=== PATIENT | female | born 1980 | race Caucasian/White ===

== ENCOUNTER 2022-05-03 13:28 | Emergency (ER) | payer OTHER ==
[2022-05-03] MEDS ORDERED: Zofran 4 MG/2 ML VIAL IV ONE (14:20)
[2022-05-03] MEDS ORDERED: Sodium Chloride 0.9% 1000 ML 1,000 ML IV STA (14:20)
[2022-05-03] MEDS ORDERED: Zofran 4 MG/2 ML VIAL ONE (14:25)
[2022-05-03] MEDS ORDERED: MORPHINE SULFATE 4 MG INJ ONE (14:26)
[2022-05-03] MEDS ORDERED: Sodium Chloride 0.9% 1000 ML 1,000 ML ONE (14:26)
[2022-05-03] MEDS ORDERED: MORPHINE SULFATE 4 MG INJ IV ONE (14:30)
[2022-05-03 14:36] LABS: Absolute Neutrophil Ct (ANC) 3.19 x10^3/uL (1.4-6.9); Basophil (Absolute #) 0.04 x10^3/uL (0-0.4); Eosinophil % 1.1 % (0.00-5.0); Eosinophil (Absolute #) 0.06 x10^3/uL (0-0.5); Hematocrit 38.4 % (35-47); Hemoglobin 12.8 g/dL (12.0-16.0); Lymphocyte (Absolute #) 1.96 x10^3/uL (1.0-4.6); Lymphocytes % 35.1 % (24.0-44.0); Mean Cell Volume 96.5 fL (78-100); Mean Corpuscular Hemoglobin 32.2 pg (26-32); Mean Corpuscular Hgb Concent. 33.3 g/dL (32-36); Mean Platelet Volume 10.3 fL (7.5-11.0); Monocyte (Absolute #) 0.33 x10^3/uL (0.0-1.3); Monocytes % 5.9 % (0.0-12.0); Platelet Count 285 x10^3/uL (150-450); Red Blood Count 3.98 x10^6/uL (4.1-5.4); Red Cell Distribution Width 11.9 % (11.5-14.0); White Blood Count 5.6 x10^3/uL (4.0-10.5)
[2022-05-03 14:51] LABS: ALBUMIN 4.5 g/dL (3.5-5.0); ALKALINE PHOSPHATASE 67 U/L (38-126); ANION GAP 13.4 MEQ/L (5-15); BLOOD UREA NITROGEN 5 mg/dL (7-17); CHLORIDE 103 mmol/L (98-107); Calcium 9.5 mg/dL (8.4-10.2); Carbon Dioxide 29 mmol/L (22-30); Creatinine 1 0.61 mg/dL (0.52-1.04); EST GLOMERULAR FILTRATION RATE > 60.0 ML/MIN; Glucose 95 mg/dL (74-106); LIPASE 32 U/L (23-300); SGOT/AST 23 U/L (14-36); SGPT/ALT 10 U/L (0-35); SODIUM 141 mmol/L (137-145); Total Protein 7.6 g/dL (6.3-8.2)
--- NOTE | 2022-05-03 15:15 | XRAY ---
Indication: Pelvic pain. Surgical history reported for fallopian tube removal and uterine ablation. Multiple contiguous axial images obtained through the abdomen and pelvis without contrast. Comparison: None Lung bases clear. Heart not enlarged. Noncontrasted stomach and bowel loops appear nonobstructed. Appendix not visualized. Moderate diffuse scattered colonic fecal debris throughout. A few left pelvic surgical clips. No free fluid/air. Remaining liver, gallbladder, pancreas, spleen, adrenal glands, kidneys, ureters, bladder, uterus, and aorta appear unremarkable for noncontrast exam. Osseous structures intact with mild levoscoliosis centered at L3. No ventral or inguinal hernias. Impression: Moderate diffuse fecal stasis. Remaining CT abdomen/pelvis without contrast exam is negative.
--- NOTE | 2022-05-03 15:17 | ERPHSYRPT ---
- History of Present Illness Time Seen by Provider: 05/03/22 13:35 Historian: patient Exam Limitations: no limitations Patient Subjective Stated Complaint: C/O burning, throbbing left pelvic pain that has been happening constantly for the past approx 10 days. Patient has f requent pelvic pain for the past 3 years but this is a new, different pain. Triage Nursing Assessment: Patient sitting in bed with knees drawn up. She is emotional, tearful when speaking but is alert and oriented; answering questions appropriately. Left pelvic area is tender to touch. No skin alterations noted upon inspection of area. No swelling. Physician History: 41 years old female with extensive history of pelvic pain, endometriosis status post surgical adhesiolysis presented in the ER with increasing pelvic pain for the last couple of weeks which is not improving with routine pain medications. Moderate to severe sharp especially in the left lower quadrant with radiation to groin and more with palpation/movement/coughing and no significant relieving factors. Denies any urinary complaint. No vaginal bleeding or discharge. No nausea vomiting or diarrhea reported. Reports having pelvic pain multiple times in the past but this seems a little severe than usual pain. Timing/Duration: week(s) (2), intermittent, gradual onset, worse Activities at Onset: rest Quality: sharpness Abdominal Pain Onset Location: RLQ, LLQ, suprapubic Pain Radiation: no radiation Severity of Pain-Max: severe Severity of Pain-Current: severe Modifying Factors: Worsens With: movement, palpation Associated Symptoms: denies symptoms Previous symptoms: different symptoms Allergies/Adverse Reactions: fentanyl Allergy (Verified 05/03/22 13:50) Home Medications: Gabapentin 1 tab PO TID 05/03/22 [History] Hydrocodone/Acetaminophen [Hydrocodone-Acetamin 10-325 mg] 1 tab PO Q3H/PRN PRN 05/03/22 [History] Lemborexant [Dayvigo] 1 tab PO HS 05/03/22 [History] Quetiapine Fumarate [Seroquel] 1 tab PO HS 05/03/22 [History] Tizanidine HCl [Zanaflex] 4 mg PO TID 05/03/22 [History] clonazePAM [Klonopin] 1 tab PO BID PRN 05/03/22 [History] Hx Tetanus, Diphtheria Vaccination/Date Given: Yes Hx Influenza Vaccination/Date Given: No Hx Pneumococcal Vaccination/Date Given: No Immunizations Up to Date: Yes Travel Risk - International Travel Have you traveled outside of the country in past 3 weeks: No - Coronavirus Screening Are you exhibiting any of the following symptoms?: No Close contact with a COVID-19 positive Pt in past 14-21 Days: No - Vaccine Status Have you recieved a Covid-19 vaccination: Yes 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[employer] - Vaccination Dates Date of 2cond Vaccination (if applicable): 2020 - Review of Systems Constitutional: No Symptoms Eyes: No Symptoms Respiratory: No Symptoms Cardiac: No Symptoms Abdominal/Gastrointestinal: Abdominal Pain Genitourinary Symptoms: Other Musculoskeletal: No Symptoms Skin: No Symptoms Neurological: No Symptoms Psychological: No Symptoms Endocrine: No Symptoms Hematologic/Lymphatic: No Symptoms Immunological/Allergic: No Symptoms - Past Medical History Pertinent Past Medical History: Yes Neurological History: No Pertinent History ENT History: No Pertinent History Cardiac History: No Pertinent History Respiratory History: No Pertinent History Endocrine Medical History: No Pertinent History Musculoskeletal History: Fractures GI Medical History: No Pertinent History History: No Pertinent History Psycho-Social History: Depression Female Reproductive Disorders: Other Other Medical History: Enlarged Uteris, frequent pelvic pain that she goes to a pain clinic for management (Dr. Jones from [place]) - Past Surgical History Past Surgical History: Yes Female Surgical History: Dilation & Curettage, Section, Other Other Surgical History: Titanium clips to left ovary, fallopian tubes removed, Incomplete miscarriage resulting in D&C - Social History Smoking Status: Former smoker Exposure to second hand smoke: No Drug Use: none Patient Lives Alone: No - Female History Hx Last Menstrual Period: Last month Hx Now: No - Nursing Vital Signs Nursing Vital Signs: Initial Vital Signs Temperature 98 F 05/03/22 13:52 Pulse Rate 93 H 05/03/22 13:52 Respiratory Rate 20 05/03/22 13:52 Blood Pressure 142/92 05/03/22 13:52 O2 Sat by Pulse Oximetry 99 05/03/22 13:52 Pain Scale Pain Intensity 8 - Physical Exam General Appearance: no apparent distress, alert Eye Exam: PERRL/EOMI Ears, Nose, Throat Exam: normal ENT inspection Neck Exam: normal inspection, supple, full range of motion Respiratory Exam: normal breath sounds, accessory muscle use Cardiovascular Exam: regular rate/rhythm, normal heart sounds Gastrointestinal/Abdomen Exam: soft, normal bowel sounds, tenderness (Lower abdomen generalized) Back Exam: normal inspection Extremity Exam: normal inspection, normal range of motion, pelvis stable Neurologic Exam: alert, oriented x 3, cooperative Skin Exam: normal color SpO2 Interpretation: normal SpO2: 99 O2 Delivery: Room Air Ordered Tests: Active Orders 24 hr Category Date Time Status ABDOMEN AND PELVIS W/0 CONTRAS [CT] Stat Exams 05/03/22 14:20 Completed CBC W DIFF Stat Lab 05/03/22 14:30 Completed CMP Stat Lab 05/03/22 14:30 Completed HCG,QUALITATIVE URINE Stat Lab 05/03/22 14:20 Completed LIPASE Stat Lab 05/03/22 14:30 Completed UA W/RFX CULTURE Stat Lab 05/03/22 Ordered Medication Summary Discontinued Medications Generic Name Dose Route Start Last Admin Trade Name Hemanth PRN Reason Stop Dose Admin Sodium Chloride 1,000 mls @ 999 mls/hr 05/03/22 14:20 05/03/22 15:28 Sodium Chloride 0.9% 1000 Ml IV 05/03/22 15:20 Infused .Q1H1M STA Infusion Sodium Chloride Confirm 05/03/22 14:26 Sodium Chloride 0.9% 1000 Ml Administered 05/03/22 14:27 Dose 1,000 mls @ ud .ROUTE .STK-MED ONE Morphine Sulfate Confirm 05/03/22 14:26 Morphine Sulfate 4 Mg/Ml Injection Administered 05/03/22 14:27 Dose 4 mg .ROUTE .STK-MED ONE Morphine Sulfate 4 mg 05/03/22 14:30 05/03/22 14:30 Morphine Sulfate 4 Mg/Ml Injection IV 05/03/22 14:31 4 mg STAT ONE Administration Ondansetron HCl 4 mg 05/03/22 14:20 05/03/22 14:29 Ondansetron Hcl 4 Mg/2 Ml Vial IV 05/03/22 14:21 4 mg STAT ONE Administration Ondansetron HCl Confirm 05/03/22 14:25 Ondansetron Hcl 4 Mg/2 Ml Vial Administered 05/03/22 14:26 Dose 4 mg .ROUTE .STK-MED ONE Lab/Rad Data: Laboratory Result Diagrams 05/03/22 14:30 05/03/22 14:30 Laboratory Results 05/03/22 05/03/22 05/03/22 Range/Units 14:30 14:30 14:20 WBC 5.6 (4.0-10.5) x10^3/uL RBC 3.98 L (4.1-5.4) x10^6/uL Hgb 12.8 (12.0-16.0) g/dL Hct 38.4 (35-47) % MCV 96.5 (78-100) fL MCH 32.2 H (26-32) pg MCHC 33.3 (32-36) g/dL RDW 11.9 (11.5-14.0) % Plt Count 285 (150-450) x10^3/uL MPV 10.3 (7.5-11.0) fL Gran % 57.0 (36.0-66.0) % Immature Gran % (Auto) 0.2 (0.00-0.4) % Nucleat RBC Rel Count 0.0 (0.00-0.1) % Eos # (Auto) 0.06 (0-0.5) x10^3/uL Immature Gran # (Auto) 0.01 (0.00-0.03) x10^3u/L Absolute Lymphs (auto) 1.96 (1.0-4.6) x10^3/uL Absolute Monos (auto) 0.33 (0.0-1.3) x10^3/uL Absolute Nucleated RBC 0.00 (0.00-0.01) x10^3u/L Lymphocytes % 35.1 (24.0-44.0) % Monocytes % 5.9 (0.0-12.0) % Eosinophils % 1.1 (0.00-5.0) % Basophils % 0.7 (0.0-0.4) % Absolute Granulocytes 3.19 (1.4-6.9) x10^3/uL Basophils # 0.04 (0-0.4) x10^3/uL Sodium 141 (137-145) mmol/L Potassium 4.0 (3.5-5.1) mmol/L Chloride 103 (98-107) mmol/L Carbon Dioxide 29 (22-30) mmol/L Anion Gap 13.4 (5-15) MEQ/L BUN 5 L (7-17) mg/dL Creatinine 0.61 (0.52-1.04) mg/dL Estimated GFR > 60.0 ML/MIN Glucose 95 (74-106) mg/dL Calcium 9.5 (8.4-10.2) mg/dL Total Bilirubin 0.40 (0.2-1.3) mg/dL AST 23 (14-36) U/L ALT 10 (0-35) U/L Alkaline Phosphatase 67 (38-126) U/L Serum Total Protein 7.6 (6.3-8.2) g/dL Albumin 4.5 (3.5-5.0) g/dL Lipase 32 (23-300) U/L Urine HCG, Qual NEGATIVE (Negative) - Progress Progress: improved, pain not gone completely, re-examined Progress Note: 05/03/22 15:34 41 years old with chronic pelvic pain is evaluated for worsening pain the last couple of weeks despite taking her routine pain medications. She has diffuse tenderness more in the left lower quadrant. Has normal white count, unremarkable chemistries. Given fluids and symptomatic treatment for pain with morphine x1 and reevaluation pain is better. CT abdomen pelvis no acute findings but consistent with constipation. Patient symptoms I believe are a combination of constipation and previous surgery related adhesions. No acute management needed, recommended increase hydration, stool softener/increase fiber supplements and diet and outpatient follow-up. Also recommended spacing out her pain medication. Discussed signs symptoms of worsening needing return to ER which she seems understanding. Counseled pt/family regarding: lab results, diagnosis, need for follow-up, rad results - Departure Departure Disposition: Home Clinical Impression: Left lower quadrant pain, Constipation Condition: Stable Critical Care Time: No Referrals: TAMIKO RAMOS, DYE EXPERT [Primary Care Provider] - Follow up/PCP as directed (1-2 days for reevaluation) Instructions: Endometriosis (DC), Constipation, Adult (DC) Additional Instructions: Take MiraLAX 2-3 times a day until you have a bowel movement every day. Increase fiber in diet. Take daily stool softener as well and daily MiraLAX after your initial constipation has resolved. Continue with pain medication and try to space them out to avoid constipation again. Return to ER for worsening pain, nausea vomiting/fever chills etc.
[2022-05-03 15:36] VITALS: BP 131/83
[2022-05-03 15:38] VITALS: O2SAT 99
[2022-05-03 15:38] LABS: Bilirubin NEGATIVE (NEGATIVE); Dipstick done @ ? MAIN LAB; Glucose NEGATIVE (NEGATIVE); Ketones NEGATIVE (NEGATIVE); Nitrite NEGATIVE (NEGATIVE); Protein,Urine Dip NEGATIVE (Negative); RBC NEGATIVE Ery/ul (0-5); Specific Gravity <=1.005 (1.005-1.025); Urobilinogen 0.2 mg/dL (0-1)
[2022-05-03 15:39] LABS: Appearance HAZY (CLEAR); Bacteria MODERATE /HPF (NEGATIVE); Epithelial Cells RARE /HPF (FEW); Mucus SLIGHT /HPF (NEGATIVE)
[2022-05-03 15:40] LABS: Urine Cultured Indicated? YES
[2022-05-03 16:03] VITALS: PULSE 70
== END 2022-05-03 16:12 | disposition home or self-care (01) ==
LOC: ED 13:28
DX: R10.32 Left lower quadrant pain (principal); K59.00 Constipation, unspecified; R10.2 Pelvic and perineal pain; Z79.891 Long term (current) use of opiate analgesic; Z79.899 Other long term (current) drug therapy
CPT/HCPCS: 36000; 36415; 74176; 80053; 81015; 81025; 83690; 85025; 87086; 96360; 96374; 96375; 99284; J2270; J2405

== ENCOUNTER 2023-01-21 11:18 | Emergency (ER) | payer OTHER ==
[2023-01-21 12:06] LABS: Appearance Clear (Clear); Bacteria None Seen /HPF (None Seen); Bilirubin Negative (Negative); Blood Negative (Negative); Epithelial Cells Rare /HPF (None Seen); Glucose, Urine Negative (Negative); Hyaline Casts NONE SEEN /LPF (0-2); Ketones Negative (Negative); Leukocyte Esterase Negative (Negative); Nitrite Negative (Negative); Ph 6.5 (4.6-8.0); Protein,Urine Dip Negative (Negative); RBC 0-2 /HPF (0-5); Specific Gravity <=1.005 (1.005-1.030); Urobilinogen 0.2 mg/dL (0.2); WBC 0-2 /HPF (0-5)
[2023-01-21 12:07] LABS: ADD URINE CULTURE? NO (NO)
[2023-01-21 12:30] VITALS: O2SAT 98
[2023-01-21] MEDS ORDERED: TORAdol 30 mg Injection IM ONE (12:56)
[2023-01-21] MEDS ORDERED: TORAdol 30 mg Injection ONE (12:58)
[2023-01-21 13:11] LABS: BASOPHIL % 0.5 % (0.0-0.4); Basophil (Absolute #) 0.04 x10^3/uL (0-0.4); Eosinophil % 0.6 % (0.00-5.0); Eosinophil (Absolute #) 0.05 x10^3/uL (0-0.5); Hematocrit 36.8 % (35-47); Hemoglobin 12.2 g/dL (12.0-16.0); IMMATURE GRAN # 0.04 x10^3u/L (0.00-0.03); IMMATURE GRAN % 0.5 % (0.00-0.4); Lymphocyte (Absolute #) 1.52 x10^3/uL (1.0-4.6); Lymphocytes % 18.7 % (24.0-44.0); Mean Cell Volume 98.1 fL (78-100); Mean Corpuscular Hemoglobin 32.5 pg (26-32); Mean Corpuscular Hgb Concent. 33.2 g/dL (32-36); Mean Platelet Volume 10.8 fL (7.5-11.0); Monocytes % 4.9 % (0.0-12.0); Neutrophil % 74.8 % (36.0-66.0); Platelet Count 301 x10^3/uL (150-450); Red Blood Count 3.75 x10^6/uL (4.1-5.4); Red Cell Distribution Width 11.8 % (11.5-14.0); White Blood Count 8.2 x10^3/uL (4.0-10.5)
[2023-01-21 13:28] LABS: ALBUMIN 4.4 g/dL (3.5-5.0); ALKALINE PHOSPHATASE 80 U/L (38-126); ANION GAP 15.9 MEQ/L (5-15); BLOOD UREA NITROGEN 4 mg/dL (7-17); CHLORIDE 105 mmol/L (98-107); Calcium 8.9 mg/dL (8.4-10.2); Carbon Dioxide 25 mmol/L (22-30); Creatinine 1 0.65 mg/dL (0.52-1.04); EST GLOMERULAR FILTRATION RATE > 60.0 ML/MIN; Glucose 95 mg/dL (74-106); Potassium 3.6 mmol/L (3.5-5.1); SGOT/AST 19 U/L (14-36); SGPT/ALT 13 U/L (0-35); SODIUM 143 mmol/L (137-145); Total Protein 7.2 g/dL (6.3-8.2)
--- NOTE | 2023-01-21 13:34 | ERPHSYRPT ---
- History of Present Illness Historian: patient Exam Limitations: no limitations Patient Subjective Stated Complaint: Pt states "I have chronic pain in my abdomen but this pain is different. It is on the left lower groin area. I cannot get it under control with my normal pain regiment." Triage Nursing Assessment: Pt presented alert and oriented X3, skin pwd. Pt ambulates with an upright steady gait, able to speak in clear full sentences pt in no apaprenrt respiratory distress. Pt holding her left lower abdomen. Physician History: 42 yo wf w LLQ pain x2days. Pain is sharp, throbbing and 8/10. She has had nausea wo vomiting/diarrhea/dysuria/hematuria/vag bleeding/fever/cough/coryza. Pt suffers from chronic pelvic pain and sees a pain physician but states that this pain is different. She states that she does have her narcotics. Timing/Duration: other (2 days) Activities at Onset: rest Quality: sharpness, throbbing Abdominal Pain Onset Location: RLQ Pain Radiation: no radiation Severity of Pain-Max: severe Severity of Pain-Current: severe Modifying Factors: Improves With: nothing Associated Symptoms: denies symptoms, nausea Previous symptoms: same symptoms as today, different symptoms Allergies/Adverse Reactions: fentanyl Allergy (Verified 05/03/22 13:50) Home Medications: Gabapentin 1 tab PO TID 05/03/22 [History] Hydrocodone/Acetaminophen [Hydrocodone-Acetamin 10-325 mg] 1 tab PO Q3H/PRN PRN 05/03/22 [History] Quetiapine Fumarate [Seroquel] 1 tab PO HS 05/03/22 [History] Tizanidine HCl [Zanaflex] 4 mg PO TID 05/03/22 [History] Hx Tetanus, Diphtheria Vaccination/Date Given: Yes Hx Influenza Vaccination/Date Given: No Hx Pneumococcal Vaccination/Date Given: No Immunizations Up to Date: Yes Travel Risk - International Travel Have you traveled outside of the country in past 3 weeks: No - Coronavirus Screening Are you exhibiting any of the following symptoms?: No Close contact with a COVID-19 positive Pt in past 14-21 Days: No - Vaccine Status Have you recieved a Covid-19 vaccination: Yes 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 - Vaccination Dates Date of 2cond Vaccination (if applicable): 2020 - Review of Systems Constitutional: No Symptoms Eyes: No Symptoms Ears, Nose, & Throat: No Symptoms Respiratory: No Symptoms Cardiac: No Symptoms Abdominal/Gastrointestinal: No Symptoms, Abdominal Pain, Nausea Genitourinary Symptoms: No Symptoms Musculoskeletal: No Symptoms Skin: No Symptoms Neurological: No Symptoms Psychological: No Symptoms Endocrine: No Symptoms Hematologic/Lymphatic: No Symptoms Immunological/Allergic: No Symptoms - Past Medical History Pertinent Past Medical History: Yes Neurological History: No Pertinent History ENT History: No Pertinent History Cardiac History: No Pertinent History Respiratory History: No Pertinent History Endocrine Medical History: No Pertinent History Musculoskeletal History: Fractures GI Medical History: No Pertinent History History: No Pertinent History Psycho-Social History: Depression Female Reproductive Disorders: Other Other Medical History: Enlarged Uteris, frequent pelvic pain that she goes to a pain clinic for management (Dr. Jones from [place]), colitis - Past Surgical History Past Surgical History: Yes Female Surgical History: Dilation & Curettage, Section, Other Other Surgical History: Titanium clips to left ovary, fallopian tubes removed, Incomplete miscarriage resulting in D&C - Social History Smoking Status: Former smoker Exposure to second hand smoke: No Drug Use: none Patient Lives Alone: No - Female History Hx Last Menstrual Period: 12/14/2022 Hx Now: No (ablsion) - Nursing Vital Signs Nursing Vital Signs: Initial Vital Signs Temperature 97.8 F 01/21/23 11:37 Pulse Rate 120 H 01/21/23 11:37 Respiratory Rate 20 01/21/23 11:37 Blood Pressure 152/97 01/21/23 11:37 O2 Sat by Pulse Oximetry 99 01/21/23 11:37 Pain Scale Pain Intensity 7 Hypertensive/Tachy - Physical Exam General Appearance: no apparent distress (In pain) Eye Exam: PERRL/EOMI, eyes nml inspection Ears, Nose, Throat Exam: normal ENT inspection, TMs normal, pharynx normal, moist mucous membranes Neck Exam: normal inspection, non-tender, supple, full range of motion, No meningismus, No mass, No Brudzinski, No Kernig's, No carotid bruit Respiratory Exam: normal breath sounds, lungs clear, airway intact Cardiovascular Exam: tachycardia, capillary refill <2 sec, No murmur Gastrointestinal/Abdomen Exam: soft, normal bowel sounds, tenderness (Moderate TTP LLQ wo guarding or rebound) Back Exam: normal inspection, normal range of motion Extremity Exam: normal inspection, normal range of motion Neurologic Exam: alert, oriented x 3, 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, 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, normal mood/affect, nml cerebellar function, nml station & gait, sensation nml, No motor deficits, No sensory deficit Skin Exam: normal color, warm, dry Lymphatic Exam: No adenopathy SpO2 Interpretation: normal SpO2: 98 O2 Delivery: Room Air - Course Nursing assessment & vital signs reviewed: Yes - CT Exams Abdomen/Pelvis CT Interpretation: Discussed w/radiologist (Moderate fecal stasis, otherwise negative) - Radiology Ultrasound Exam Pelvis Ultrasound: discussed w/radiologist (Transvag US neg) Ordered Tests: Active Orders 24 hr Category Date Time Status ABDOMEN AND PELVIS W/0 CONTRAS [CT] Stat Exams 01/21/23 14:01 Completed PELVIS TRANS VAGINAL [US] Stat Exams 01/21/23 12:58 Completed CBC W DIFF Stat Lab 01/21/23 13:12 Completed CMP Stat Lab 01/21/23 13:12 Completed HCG,QUALITATIVE URINE Stat Lab 01/21/23 12:58 Completed UA W/RFX UR CULTURE Stat Lab 01/21/23 11:47 Completed Urine Triage Profile Stat Lab 01/21/23 12:58 Completed Medication Summary Discontinued Medications Generic Name Dose Route Start Last Admin Trade Name Freq PRN Reason Stop Dose Admin Butorphanol Tartrate 1 mg 01/21/23 14:01 01/21/23 14:11 Butorphanol Tartrate 2 Mg/Ml Vial IM 01/21/23 14:02 1 mg STAT ONE Administration Butorphanol Tartrate Confirm 01/21/23 14:04 Butorphanol Tartrate 2 Mg/Ml Vial Administered 01/21/23 14:05 Dose 2 mg .ROUTE .STK-MED ONE Ketorolac Tromethamine 30 mg 01/21/23 12:56 01/21/23 13:01 Ketorolac Tromethamine 30 Mg/Ml Inj IM 01/21/23 12:57 30 mg STAT ONE Administration Ketorolac Tromethamine Confirm 01/21/23 12:58 Ketorolac Tromethamine 30 Mg/Ml Inj Administered 01/21/23 12:59 Dose 30 mg .ROUTE .STK-MED ONE Lab/Rad Data: Laboratory Result Diagrams 01/21/23 13:12 01/21/23 13:12 Laboratory Results 01/21/23 01/21/23 01/21/23 Range/Units 13:12 13:12 12:58 WBC 8.2 (4.0-10.5) x10^3/uL RBC 3.75 L (4.1-5.4) x10^6/uL Hgb 12.2 (12.0-16.0) g/dL Hct 36.8 (35-47) % MCV 98.1 (78-100) fL MCH 32.5 H (26-32) pg MCHC 33.2 (32-36) g/dL RDW 11.8 (11.5-14.0) % Plt Count 301 (150-450) x10^3/uL MPV 10.8 (7.5-11.0) fL Gran % 74.8 H (36.0-66.0) % Immature Gran % (Auto) 0.5 H (0.00-0.4) % Nucleat RBC Rel Count 0.0 (0.00-0.1) % Eos # (Auto) 0.05 (0-0.5) x10^3/uL Immature Gran # (Auto) 0.04 H (0.00-0.03) x10^3u/L Absolute Lymphs (auto) 1.52 (1.0-4.6) x10^3/uL Absolute Monos (auto) 0.40 (0.0-1.3) x10^3/uL Absolute Nucleated RBC 0.00 (0.00-0.01) x10^3u/L Lymphocytes % 18.7 L (24.0-44.0) % Monocytes % 4.9 (0.0-12.0) % Eosinophils % 0.6 (0.00-5.0) % Basophils % 0.5 (0.0-0.4) % Absolute Granulocytes 6.10 (1.4-6.9) x10^3/uL Basophils # 0.04 (0-0.4) x10^3/uL Sodium 143 (137-145) mmol/L Potassium 3.6 (3.5-5.1) mmol/L Chloride 105 (98-107) mmol/L Carbon Dioxide 25 (22-30) mmol/L Anion Gap 15.9 H (5-15) MEQ/L BUN 4 L (7-17) mg/dL Creatinine 0.65 (0.52-1.04) mg/dL Estimated GFR > 60.0 ML/MIN Glucose 95 (74-106) mg/dL Calcium 8.9 (8.4-10.2) mg/dL Total Bilirubin 0.40 (0.2-1.3) mg/dL AST 19 (14-36) U/L ALT 13 (0-35) U/L Alkaline Phosphatase 80 (38-126) U/L Serum Total Protein 7.2 (6.3-8.2) g/dL Albumin 4.4 (3.5-5.0) g/dL Urine Color (Yellow) Urine Appearance (Clear) Urine pH (4.6-8.0) Ur Specific [place] (1.005-1.030) Urine Protein (Negative) Urine Glucose (UA) (Negative) mg/dL Urine Ketones (Negative) Urine Blood (Negative) Urine Nitrite (Negative) Urine Bilirubin (Negative) Urine Urobilinogen (0.2) mg/dL Ur Leukocyte Esterase (Negative) U Hyaline Cast (Auto) (0-2) /LPF Urine Microscopic RBC (0-5) /HPF Urine Microscopic WBC (0-5) /HPF Ur Epithelial Cells (None Seen) /HPF Urine Bacteria (None Seen) /HPF Urine Culture Reflexed (NO) Urine HCG, Qual NEGATIVE (Negative) Urine Opiates Level (NEGATIVE) Ur Methadone (NEGATIVE) Urine Barbiturates (NEGATIVE) Ur Phencyclidine (PCP) (NEGATIVE) Urine Amphetamine (NEGATIVE) U Benzodiazepine Level (NEGATIVE) Urine Cocaine (NEGATIVE) Urine Marijuana (THC) (NEGATIVE) 01/21/23 01/21/23 Range/Units 12:58 11:47 WBC (4.0-10.5) x10^3/uL RBC (4.1-5.4) x10^6/uL Hgb (12.0-16.0) g/dL Hct (35-47) % MCV (78-100) fL MCH (26-32) pg MCHC (32-36) g/dL RDW (11.5-14.0) % Plt Count (150-450) x10^3/uL MPV (7.5-11.0) fL Gran % (36.0-66.0) % Immature Gran % (Auto) (0.00-0.4) % Nucleat RBC Rel Count (0.00-0.1) % Eos # (Auto) (0-0.5) x10^3/uL Immature Gran # (Auto) (0.00-0.03) x10^3u/L Absolute Lymphs (auto) (1.0-4.6) x10^3/uL Absolute Monos (auto) (0.0-1.3) x10^3/uL Absolute Nucleated RBC (0.00-0.01) x10^3u/L Lymphocytes % (24.0-44.0) % Monocytes % (0.0-12.0) % Eosinophils % (0.00-5.0) % Basophils % (0.0-0.4) % Absolute Granulocytes (1.4-6.9) x10^3/uL Basophils # (0-0.4) x10^3/uL Sodium (137-145) mmol/L Potassium (3.5-5.1) mmol/L Chloride (98-107) mmol/L Carbon Dioxide (22-30) mmol/L Anion Gap (5-15) MEQ/L BUN (7-17) mg/dL Creatinine (0.52-1.04) mg/dL Estimated GFR ML/MIN Glucose (74-106) mg/dL Calcium (8.4-10.2) mg/dL Total Bilirubin (0.2-1.3) mg/dL AST (14-36) U/L ALT (0-35) U/L Alkaline Phosphatase (38-126) U/L Serum Total Protein (6.3-8.2) g/dL Albumin (3.5-5.0) g/dL Urine Color Yellow (Yellow) Urine Appearance Clear (Clear) Urine pH 6.5 (4.6-8.0) Ur Specific [place] <=1.005 (1.005-1.030) Urine Protein Negative (Negative) Urine Glucose (UA) Negative (Negative) mg/dL Urine Ketones Negative (Negative) Urine Blood Negative (Negative) Urine Nitrite Negative (Negative) Urine Bilirubin Negative (Negative) Urine Urobilinogen 0.2 (0.2) mg/dL Ur Leukocyte Esterase Negative (Negative) U Hyaline Cast (Auto) NONE SEEN (0-2) /LPF Urine Microscopic RBC 0-2 (0-5) /HPF Urine Microscopic WBC 0-2 (0-5) /HPF Ur Epithelial Cells Rare (None Seen) /HPF Urine Bacteria None Seen (None Seen) /HPF Urine Culture Reflexed NO (NO) Urine HCG, Qual (Negative) Urine Opiates Level POSITIVE (NEGATIVE) Ur Methadone NEGATIVE (NEGATIVE) Urine Barbiturates NEGATIVE (NEGATIVE) Ur Phencyclidine (PCP) NEGATIVE (NEGATIVE) Urine Amphetamine NEGATIVE (NEGATIVE) U Benzodiazepine Level NEGATIVE (NEGATIVE) Urine Cocaine NEGATIVE (NEGATIVE) Urine Marijuana (THC) NEGATIVE (NEGATIVE) - Progress Progress: improved Progress Note: 01/21/23 15:05 Nursing note and vital signs reviewed No housing or food insecurities noted No improvement in pain w 30mg IM Toradol Improvement in pain w 1mg IM Stadol Lab results/US results/CT results reviewed and shared w pt Pain most likely exacerbation of chronic abdominal pain wo acute evidence of surgical abdomen or new etiology 01/21/23 20:28 Counseled pt/family regarding: lab results, diagnosis, need for follow-up, rad results - Departure Departure Disposition: Home Clinical Impression: Chronic abdominal pain Condition: Stable Critical Care Time: No Referrals: Provider,Unknown [Primary Care Provider] - Follow up/PCP as directed Instructions: Severe Abdominal Pain, Adult (DC) Additional Instructions: Follow up with your family MD, pain specialist, or ob-saw tailer Continue with chronic pain meds Return to ER for increasing pain or temperature greater than 100.5
--- NOTE | 2023-01-21 13:51 | XRAY ---
Indication: Left inguinal pain. Torsion. Two-dimensional transvaginal pelvic sonogram performed. Comparison: None Uterus anteverted measuring 6.7 x 3.3 x 5.8 cm. No focal solid/cystic uterine mass. Endometrial stripe measures 3.7 mm. No endometrial cavity mass or fluid collection. Right ovary measures 3.3 x 2.6 x 3.3 cm and the left measures 2.8 x 1.4 x 2.5 cm. Normal follicular cysts and perfusion bilaterally. No suspicious adnexal mass or free fluid. Impression: Negative transvaginal pelvic sonogram.
[2023-01-21] MEDS ORDERED: STADOL 2 MG IM ONE (14:01)
[2023-01-21] MEDS ORDERED: STADOL 2 MG ONE (14:04)
[2023-01-21 14:34] LABS: Amphetamine,Urine NEGATIVE (NEGATIVE); Barbiturate,Urine NEGATIVE (NEGATIVE); Benzodiazepine,Urine NEGATIVE (NEGATIVE); Cocaine,Urine NEGATIVE (NEGATIVE); Methadone,Urine NEGATIVE (NEGATIVE); Opiate,Urine POSITIVE (NEGATIVE); PCP,Urine NEGATIVE (NEGATIVE); THC,Urine NEGATIVE (NEGATIVE)
--- NOTE | 2023-01-21 14:37 | XRAY ---
Indication: Left lower quadrant pain. Multiple contiguous axial images obtained through the abdomen and pelvis without contrast. Comparison: May 03, 2022 Lung bases remain clear. Heart not enlarged. Noncontrasted stomach and bowel loops appear nonobstructed. Appendix not visualized. Again moderate diffuse scattered colonic fecal debris throughout, less than before. Stable left pelvic surgical clips. No free fluid/air. Remaining liver, gallbladder, pancreas, spleen, adrenal glands, kidneys, ureters, bladder, uterus, and aorta are unremarkable for noncontrast exam. Osseous structures intact again with mild levoscoliosis. Impression: 1. Again moderate diffuse fecal stasis less than before. 2. Remaining CT abdomen/pelvis without contrast exam continues to be negative.
[2023-01-21 14:45] VITALS: BP 119/93; PULSE 83
== END 2023-01-21 15:16 | disposition home or self-care (01) ==
LOC: ED 11:18
DX: G89.29 Other chronic pain (principal); R10.32 Left lower quadrant pain; R11.0 Nausea; Z79.891 Long term (current) use of opiate analgesic; Z79.899 Other long term (current) drug therapy
CPT/HCPCS: 36415; 74176; 76830; 80053; 80307; 81001; 81025; 85025; 96372; 99284; J0595; J1885